=== PATIENT | female | born 1960 | race Caucasian/White ===

== ENCOUNTER 2017-10-18 02:13 | Inpatient (IN) ==
[2017-10-18] MEDS ORDERED: fentaNYL Citrate Inj 100 MCG/2 ML Ampul IV.PUSH PRN (02:36)
[2017-10-18] MEDS ORDERED: Temazepam 15 MG Capsule PO PRN (03:34)
[2017-10-18] MEDS ORDERED: Bisacodyl 10 MG Supp RECTAL PRN (03:34)
[2017-10-18] MEDS ORDERED: Naloxone Inj 0.4 MG/ML Vial IV.PUSH PRN (03:37)
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
[2017-10-18] MEDS: Sod Chloride 0.9% Inj 1,000 ML IV.CONT SCH ×2 (04:13→15:38)
[2017-10-18] MEDS: ceFAZolin Inj 2,000 MG in Sodium Chlor 0.9% Inj 80 ML IV.SIG SCH ×3 (04:13→20:37)
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
[2017-10-18] MEDS: Morphine Inj 4 MG/ML Vial IV.PUSH PRN ×4 (04:29→21:57)
--- NOTE | 2017-10-18 08:33 | ECG ---
Date Performed: 10/18/2017 Time Performed: 06:10:36 PTAGE: 56 years EKG: Sinus rhythm Normal ECG NO PREVIOUS TRACING DOCTOR: Elias Navarro Interpretating Date/Time 10/18/2017 08:31:31
--- NOTE | 2017-10-18 17:29 | XR ---
EXAM DATE: 10/18/2017 5:23 PM EDT AGE/SEX: 56 years / Female INDICATIONS: Fracture to left 4th and 5th mid to distal metatarsals. CLINICAL DATA: This is the patient's initial encounter. Patient reports that signs and symptoms have been present for 1 day and indicates a pain score of 10/10. MEDICAL/SURGICAL HISTORY: None. None. COMPARISON: No prior exams available for comparison. FINDINGS: The examination demonstrates moderately displaced fractures involving the fourth and fifth metacarpal s. The remainder the osseous structures are intact. CONCLUSION: Moderately displaced fractures involving the fourth and fifth metacarpals of the left foot. Electronically signed by: Vaibhav Howard MD 10/18/2017 5:28 PM EDT
[2017-10-18] MEDS: Gabapentin 300 MG Capsule PO SCH (17:41)
--- NOTE | 2017-10-18 20:22 | MR ---
EXAM DATE: 10/18/2017 7:40 PM EDT AGE/SEX: 56 years / Female INDICATIONS: Internal derangement. Trauma with laceration on bottom of foot. CLINICAL DATA: This is the patient's initial encounter. Patient reports that signs and symptoms have been present for 1 day and indicates a pain score of 7/10. MEDICAL/SURGICAL HISTORY: Arthritis. section. Breast augmentation. COMPARISON: No prior exams available for comparison. TECHNIQUE: Multiplanar, multisequence MRI examination was performed without contrast. FINDINGS: There is a loculated fluid collection on the plantar aspect of the foot measuring up to 7 cm in lengt h, 4.7 cm in transverse diameter and 1.6 cm this predominantly overlies the metatarsals. Reportedly t here is a laceration on bottom of foot. This could represent hematoma. Cannot exclude infection. Cont rast not administered. There is also edema in the subcutaneous tissues of the remainder of the foot e specially on the dorsum of the foot and the distal metatarsal and phalangeal region. No significant m arrow edema is seen to suggest fracture. No some scattered reactive type marrow changes noted. Small benign-appearing cystic lesion noted in the calcaneus anteriorly. No dislocation. No tendon ruptures are seen. Plantar fascia appears to be intact. Small ankle joint effusion. CONCLUSION: 1. Loculated fluid on the plantar aspect of the foot as above could represent hematoma associated wi th reported laceration. Cannot exclude infection although inflammatory changes around the fluid colle ction are minimal. No evidence for osteomyelitis. 2. Additional edematous changes are present in the forefoot including the dorsum of the foot with ex tension into the phalanges. 3. Small ankle joint effusion. Mild to moderate degenerative changes in the foot with some reactive marrow changes. Plantar fascial insertion appears intact. Electronically signed by: Geovanni Ashley MD 10/18/2017 8:21 PM EDT
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
[2017-10-18] MEDS ORDERED: Gentamicin/NS 80 mg Premix 100 ML IV.SIG SCH (21:00)
[2017-10-18] MEDS: Gentamicin Inj 80 MG in Sodium Chlor 0.9% Inj 100 ML IV.SIG SCH (22:45)
[2017-10-19] MEDS: Sod Chloride 0.9% Inj 1,000 ML IV.CONT SCH (00:46)
[2017-10-19] MEDS: Morphine Inj 4 MG/ML Vial IV.PUSH PRN ×6 (01:13→23:02)
[2017-10-19] MEDS: ceFAZolin Inj 2,000 MG in Sodium Chlor 0.9% Inj 80 ML IV.SIG SCH ×3 (04:09→19:44)
[2017-10-19 07:15] LABS: Baso # (Auto) 0.1 th/mm3 (0.0-0.2); Baso % (Auto) 0.9 % (0.0-2.0); Eos # (Auto) 0.2 th/mm3 (0.0-0.4); Eos % (Auto) 1.8 % (0.0-4.0); Hemoglobin 13.6 gm/dL (11.6-15.3); Lymph # (Auto) 2.5 th/mm3 (1.0-4.8); Lymph % (Auto) 25.2 % (9.0-44.0); Mean Corpuscular Hemoglobin 28.9 pg (27.0-34.0); Mean Platelet Volume 8.8 fL (7.0-11.0); Mono % (Auto) 10.4 % (0.0-8.0); Neut % (Auto) 61.7 % (16.0-70.0); Platelet Count 214 th/mm3 (150-450); Red Cell Distribution Width 14.9 % (11.6-17.2); White Blood Count 9.8 th/mm3 (4.0-11.0)
[2017-10-19 07:46] LABS: Albumin 3.7 g/dL (3.4-5.0); Anion Gap 10 meq/L (5-15); Aspartate Aminotransferase 24 U/L (15-37); Blood Urea Nitrogen 13 mg/dL (7-18); Calcium 8.8 mg/dL (8.5-10.1); Carbon Dioxide 21.7 meq/L (21.0-32.0); Chloride 107 meq/L (98-107); Glomerular Filtration Rate 68 mL/min (>89); Glucose,Random 76 mg/dL (74-106); Potassium 3.6 meq/L (3.5-5.1); Sodium 139 meq/L (136-145)
[2017-10-19 07:47] LABS: Alanine Aminotransferase 14 U/L (10-53)
[2017-10-19 07:49] LABS: Alkaline Phosphatase 44 U/L (45-117); Total Protein 7.1 g/dL (6.4-8.2)
[2017-10-19] MEDS: Gabapentin 300 MG Capsule PO SCH ×3 (08:47→17:38)
--- NOTE | 2017-10-19 11:53 | P.PNPOD ---
Subjective Interval history: Pt resting comfortably, but states that the posterior splint is uncomfortable. She denies any events over night. Physical Exam Vital signs: Vital Signs 10/18/17 12:00 10/18/17 16:00 10/18/17 20:00 Temperature 97.6 F 97.5 F L 99 F Pulse Rate 78 75 78 Respiratory Rate 16 15 Blood Pressure 138/88 135/87 175/73 H Pulse Oximetry 98 99 97 10/18/17 20:35 10/18/17 21:58 10/19/17 00:00 Temperature 99 F Pulse Rate 84 Respiratory Rate 18 18 17 Blood Pressure 163/79 H Pulse Oximetry 95 10/19/17 04:00 10/19/17 05:31 10/19/17 08:00 Temperature 97.9 F 97.7 F Pulse Rate 79 80 Respiratory Rate 19 18 14 Blood Pressure 131/74 126/88 Pulse Oximetry 97 98 Intake & Output 10/18/17 10/19/17 10/19/17 18:59 06:59 18:59 Intake Total 1900 / 1900 920 / 920 0 / 0 Balance 1900 / 1900 920 / 920 0 / 0 Intake: IV 1100 / 1100 200 / 200 NS Inj 1,000 ML @ 100 mls/hr IV 1000 / 1000 .CONT .Q10H [facility] Rx#:[id number] Gentamicin Inj 80 MG In NS Inj 100 / 100 100 ML @ 204 mls/hr IV.SIG Q24H [facility] Rx#:[id number] Ancef Inj 2,000 MG In NS Inj 80 100 / 100 100 / 100 ML @ 200 mls/hr IV.SIG Q8H [facility] Rx#:[id number] Oral 800 / 800 720 / 720 0 / 0 Other: # Voids 4 Date of Last Bowel Movement 10/17/17 10/17/17 10/17/17 Narrative: Left foot sutures intact, with plantar edema but skin is blanchable and intact. No drainage. No erythema. Sensation is intact. ROM of digits has increased. Calf is supple and non tender to compression. Medications and Allergies Active Medications: Active Medications Hydrocodone Bitart/Acetaminophen ([place] 5/325) 1 tab PO Q4H PRN PRN Reason: PAIN SCALE 3 TO 5 Last Admin: 10/18/17 16:39 Dose: 1 tab Hydrocodone Bitart/Acetaminophen ([place] 7.5/325) 1 tab PO Q4H PRN PRN Reason: PAIN SCALE 6 TO 10 Last Admin: 10/19/17 09:53 Dose: 1 tab Al Hydroxide/Mg Hydroxide (Milk Of Magnesia Liq) 30 ml PO Q12H PRN PRN Reason: Mild Constipation Albuterol (Ventolin Hfa Inh) 2 puff INH Q6H PRN PRN Reason: SHORTNESS OF BREATH Alprazolam (Xanax) 1 mg PO TID PRN PRN Reason: Anxiety Last Admin: 10/19/17 01:13 Dose: 1 mg Bisacodyl (Dulcolax Supp) 10 mg RECTAL DAILY PRN PRN Reason: SEVERE CONSITIPATION Gabapentin (Neurontin) 600 mg PO TID [facility] Last Admin: 10/19/17 08:47 Dose: 600 mg Sodium Chloride (Ns Inj) 1,000 mls @ 100 mls/hr IV.CONT .Q10H [facility] Last Admin: 10/19/17 00:46 Dose: 100 mls/hr Cefazolin Sodium 2,000 mg/ (Sodium Chloride) 100 mls @ 200 mls/hr IV.SIG Q8H [facility] Last Admin: 10/19/17 04:09 Dose: 100 mls/hr Gentamicin Sulfate 80 mg/ (Sodium Chloride) 102 mls @ 204 mls/hr IV.SIG Q24H [facility] Stop: 10/21/17 23:59 Last Infusion: 10/19/17 00:49 Dose: 204 mls/hr Lactulose (Lactulose Liq) 30 ml PO DAILY PRN PRN Reason: SEVERE CONSITIPATION Morphine Sulfate (Morphine Inj) 2 mg IV.PUSH Q3H PRN PRN Reason: Breakthrough and if NPO Last Admin: 10/19/17 08:50 Dose: 2 mg Naloxone HCl (Narcan Inj) 0.4 mg IV.PUSH UNSCH PRN PRN Reason: SEE LABEL COMMENTS Nicotine (Habitrol 14 Mg Patch.24 Hr) 1 patch T-DERMAL DAILY [facility] Last Admin: 10/19/17 08:47 Dose: 1 patch Patch Removal (Remove Old Patch) 0 each T-DERMAL DAILY [facility] Last Admin: 10/19/17 08:49 Dose: Not Given Sennosides (Senokot) 17.2 mg PO Q12H PRN PRN Reason: Moderate Constipation Allergies Allergy/AdvReac Type Severity Reaction Status Date / Time No Known Allergies Allergy Unverified 10/18/17 02:24 Home Medications Medication Instructions Recorded Confirmed Type albuterol sulfate [Ventolin HFA] 2 puff INHALATION Q4-6H PRN 10/18/17 10/18/17 History alprazolam 1 mg PO BID 10/18/17 10/18/17 History alprazolam [Xanax] 1 mg PO TID PRN 10/18/17 10/18/17 History gabapentin 800 mg PO TID 10/18/17 10/18/17 History tizanidine 4 mg PO TID 10/18/17 10/18/17 History Results - Labs CBC & Chem 7: 10/19/17 06:27 10/19/17 06:27 Laboratory Results - last 24 hr 10/19/17 10/19/17 06:27 06:27 WBC 9.8 RBC 4.70 Hgb 13.6 Hct 40.0 MCV 85.0 MCH 28.9 MCHC 34.0 RDW 14.9 Plt Count 214 MPV 8.8 Neut % (Auto) 61.7 Lymph % (Auto) 25.2 Green % (Auto) 10.4 H Eos % (Auto) 1.8 Baso % (Auto) 0.9 Neut # (Auto) 6.0 Lymph # (Auto) 2.5 Green # (Auto) 1.0 H Eos # (Auto) 0.2 Baso # (Auto) 0.1 WBC Differential . Differential Comment Auto diff final Sodium 139 Potassium 3.6 Chloride 107 Carbon Dioxide 21.7 Anion Gap 10 BUN 13 Creatinine 0.87 Estimated GFR 68 L Random Glucose 76 Calcium 8.8 Total Bilirubin 0.7 AST 24 ALT 14 Alkaline Phosphatase 44 L Total Protein 7.1 Albumin 3.7 - Imaging Impressions Foot MRI 10/18/17 00:00 CONCLUSION: 1. Loculated fluid on the plantar aspect of the foot as above could represent hematoma associated with reported laceration. Cannot exclude infection although inflammatory changes around the fluid collection are minimal. No evidence for osteomyelitis. 2. Additional edematous changes are present in the forefoot including the dorsum of the foot with extension into the phalanges. 3. Small ankle joint effusion. Mild to moderate degenerative changes in the foot with some reactive marrow changes. Plantar fascial insertion appears intact. Foot X-Ray 10/18/17 00:00 CONCLUSION: Moderately displaced fractures involving the fourth and fifth metacarpals of the left foot. Assessment and Plan - Assessment (1) Fracture of metatarsal bone of left foot Code(s): S92.302A - Fracture of unspecified metatarsal bone(s), left foot, initial encounter for closed fracture Status: Acute - Plan 1)left 4th and 5th metatarsal fractures 2)left foot degloving injury -NWBing LLE -elevate at all times, no ice -MRI negative for tendon injury, metatarsal fractures are well aligned and non operable -Plan to keep in house for an additional 48-72 hours to monitor the plantar flap , small chance the swelling/hematoma will need to be evacuated -Cont iv abx
--- NOTE | 2017-10-19 12:49 | P.PN ---
Subjective Interval history: Follow-up foot injury. States she is doing okay recommended to stay in-house for 48-72 hours per podiatry to monitor hematoma Physical Exam Vital signs: Vital Signs 10/18/17 16:00 10/18/17 20:00 10/18/17 20:35 Temperature 97.5 F L 99 F Pulse Rate 75 78 Respiratory Rate 15 18 Blood Pressure 135/87 175/73 H Pulse Oximetry 99 97 10/18/17 21:58 10/19/17 00:00 10/19/17 04:00 Temperature 99 F 97.9 F Pulse Rate 84 79 Respiratory Rate 18 17 19 Blood Pressure 163/79 H 131/74 Pulse Oximetry 95 97 10/19/17 05:31 10/19/17 08:00 10/19/17 12:00 Temperature 97.7 F 97.8 F Pulse Rate 80 84 Respiratory Rate 18 14 18 Blood Pressure 126/88 137/81 Pulse Oximetry 98 96 Intake & Output 10/18/17 10/19/17 10/19/17 18:59 06:59 18:59 Intake Total 1900 / 1900 920 / 920 0 / 0 Balance 1900 / 1900 920 / 920 0 / 0 Intake: IV 1100 / 1100 200 / 200 NS Inj 1,000 ML @ 100 mls/hr IV 1000 / 1000 .CONT .Q10H [facility] Rx#:[id number] Gentamicin Inj 80 MG In NS Inj 100 / 100 100 ML @ 204 mls/hr IV.SIG Q24H [facility] Rx#:[id number] Ancef Inj 2,000 MG In NS Inj 80 100 / 100 100 / 100 ML @ 200 mls/hr IV.SIG Q8H [facility] Rx#:[id number] Oral 800 / 800 720 / 720 0 / 0 Other: # Voids 4 Date of Last Bowel Movement 10/17/17 10/17/17 10/17/17 Narrative: GENERAL: This is a well-nourished, well-developed patient, in no apparent distress. SKIN: Left foot laceration, sanguinous drainage CARDIOVASCULAR: Regular rate and rhythm without murmurs, gallops, or rubs. RESPIRATORY: Clear to auscultation. Breath sounds equal bilaterally. No wheezes , rales, or rhonchi. GASTROINTESTINAL: Abdomen soft, non-tender, nondistended. Normal active bowel sounds MUSCULOSKELETAL: Extremities without clubbing, cyanosis, or edema. Right lower extremity in a splint NEURO: Alert & Oriented x4 to person, place, time, situation. Results - Labs CBC & Chem 7: 10/19/17 06:27 10/19/17 06:27 Laboratory Results - last 24 hr 10/19/17 10/19/17 06:27 06:27 WBC 9.8 RBC 4.70 Hgb 13.6 Hct 40.0 MCV 85.0 MCH 28.9 MCHC 34.0 RDW 14.9 Plt Count 214 MPV 8.8 Neut % (Auto) 61.7 Lymph % (Auto) 25.2 [place] % (Auto) 10.4 H Eos % (Auto) 1.8 Baso % (Auto) 0.9 Neut # (Auto) 6.0 Lymph # (Auto) 2.5 [place] # (Auto) 1.0 H Eos # (Auto) 0.2 Baso # (Auto) 0.1 WBC Differential . Differential Comment Auto diff final Sodium 139 Potassium 3.6 Chloride 107 Carbon Dioxide 21.7 Anion Gap 10 BUN 13 Creatinine 0.87 Estimated GFR 68 L Random Glucose 76 Calcium 8.8 Total Bilirubin 0.7 AST 24 ALT 14 Alkaline Phosphatase 44 L Total Protein 7.1 Albumin 3.7 - Imaging Impressions Foot MRI 10/18/17 00:00 CONCLUSION: 1. Loculated fluid on the plantar aspect of the foot as above could represent hematoma associated with reported laceration. Cannot exclude infection although inflammatory changes around the fluid collection are minimal. No evidence for osteomyelitis. 2. Additional edematous changes are present in the forefoot including the dorsum of the foot with extension into the phalanges. 3. Small ankle joint effusion. Mild to moderate degenerative changes in the foot with some reactive marrow changes. Plantar fascial insertion appears intact. Foot X-Ray 10/18/17 00:00 CONCLUSION: Moderately displaced fractures involving the fourth and fifth metacarpals of the left foot. Assessment and Plan - Plan Multiple metatarsal fractures Degloving injury X-ray of the left foot reviewed and shows fractures of the distal second and third metatarsals with adjacent lacerations. Small 2 mm fracture fragment arising from the lateral distal third metatarsal. Small avulsion fraction of the dorsal distal margin of the distal tarsal row. Possible ligament injury. -Consulted podiatry who recommended continued hospitalization for 48-74 hours to monitor hematoma(suggested in MRI0 might need to be evacuated -Pain management with IV morphine and p.o. [place] -Continue IV antibiotic. Multiple medical conditions of chronic pain and anxiety DVT prophylaxis: SCDs. Pharmacological prophylaxis contraindicated at this time secondary to hematoma Discharge Planning: per podiatry
[2017-10-19] MEDS: Gentamicin Inj 80 MG in Sodium Chlor 0.9% Inj 100 ML IV.SIG SCH (21:59)
[2017-10-20] MEDS: ceFAZolin Inj 2,000 MG in Sodium Chlor 0.9% Inj 80 ML IV.SIG SCH ×3 (04:50→19:32)
[2017-10-20] MEDS: Morphine Inj 4 MG/ML Vial IV.PUSH PRN ×4 (07:25→20:46)
[2017-10-20] MEDS: Gabapentin 300 MG Capsule PO SCH ×3 (08:28→17:02)
--- NOTE | 2017-10-20 15:08 | P.PN ---
Subjective Interval history: Follow-up foot injury. Complaining of increased pain when she was out of bed Physical Exam Vital signs: Vital Signs 10/19/17 16:00 10/19/17 20:00 10/20/17 00:00 Temperature 98.1 F 97.9 F 99.1 F Pulse Rate 80 87 89 Respiratory Rate 16 18 18 Blood Pressure 117/73 162/77 H 116/71 Pulse Oximetry 97 98 97 10/20/17 08:00 10/20/17 12:00 Temperature 98.0 F 97.8 F Pulse Rate 80 77 Respiratory Rate 20 16 Blood Pressure 117/78 106/84 Pulse Oximetry 99 94 L Intake & Output 10/19/17 10/20/17 10/20/17 18:59 06:59 18:59 Intake Total 900 / 900 200 / 200 Balance 900 / 900 200 / 200 Weight 60.6 kg Intake: IV 100 / 100 200 / 200 Ancef Inj 2,000 MG In NS Inj 80 100 / 100 200 / 200 ML @ 200 mls/hr IV.SIG Q8H [facility] Rx#:[id number] Oral 800 / 800 Other: # Voids 1 2 Date of Last Bowel Movement 10/17/17 10/17/17 10/17/17 Narrative: GENERAL: This is a well-nourished, well-developed patient, in no apparent distress. SKIN: No lesions warm and dry CARDIOVASCULAR: Regular rate and rhythm without murmurs, gallops, or rubs. RESPIRATORY: Clear to auscultation. Breath sounds equal bilaterally. No wheezes , rales, or rhonchi. GASTROINTESTINAL: Abdomen soft, non-tender, nondistended. Normal active bowel sounds MUSCULOSKELETAL: Extremities without clubbing, cyanosis, or edema. Right lower extremity in a splint NEURO: Alert & Oriented x4 to person, place, time, situation. Results - Labs CBC & Chem 7: 10/19/17 06:27 10/19/17 06:27 Assessment and Plan - Plan Multiple metatarsal fractures Degloving injury X-ray of the left foot reviewed and shows fractures of the distal second and third metatarsals with adjacent lacerations. Small 2 mm fracture fragment arising from the lateral distal third metatarsal. Small avulsion fraction of the dorsal distal margin of the distal tarsal row. Possible ligament injury. -Consulted podiatry who recommended continued hospitalization for 48-74 hours from 10/19 to monitor hematoma(suggested in MRI) might need to be evacuated -Pain management with IV morphine and p.o. [place] -Continue IV antibiotic. Multiple medical conditions of chronic pain and anxiety DVT prophylaxis: SCDs. Pharmacological prophylaxis contraindicated at this time secondary to hematoma Discharge Planning: per podiatry
[2017-10-20] MEDS: Gentamicin Inj 80 MG in Sodium Chlor 0.9% Inj 100 ML IV.SIG SCH (21:54)
[2017-10-21] MEDS: Morphine Inj 4 MG/ML Vial IV.PUSH PRN ×3 (00:44→08:55)
[2017-10-21] MEDS: ceFAZolin Inj 2,000 MG in Sodium Chlor 0.9% Inj 80 ML IV.SIG SCH ×2 (04:15→12:10)
[2017-10-21] MEDS: Gabapentin 300 MG Capsule PO SCH ×2 (08:48→13:05)
--- NOTE | 2017-10-21 11:14 | P.PN ---
Subjective Interval history: Follow-up foot injury. She is doing okay and wants to go home. Discussed with nursing contact podiatry Physical Exam Vital signs: Vital Signs 10/20/17 12:00 10/20/17 16:00 10/20/17 20:00 Temperature 97.8 F 98.6 F 98.1 F Pulse Rate 77 79 84 Respiratory Rate 16 18 18 Blood Pressure 106/84 111/67 159/80 H Pulse Oximetry 94 L 95 97 10/21/17 00:00 10/21/17 04:00 10/21/17 08:00 Temperature 99.0 F 97.6 F 98.4 F Pulse Rate 78 74 69 Respiratory Rate 18 17 18 Blood Pressure 147/56 H 120/72 109/68 Pulse Oximetry 95 97 94 L Intake & Output 10/20/17 10/21/17 10/21/17 18:59 06:59 18:59 Intake Total 580 / 580 200 / 200 Balance 580 / 580 200 / 200 Weight 60.6 kg Intake: IV 100 / 100 200 / 200 Ancef Inj 2,000 MG In NS Inj 80 100 / 100 200 / 200 ML @ 200 mls/hr IV.SIG Q8H [facility] Rx#:[id number] Oral 480 / 480 Other: # Voids 1 4 Date of Last Bowel Movement 10/17/17 10/18/17 Narrative: GENERAL: This is a well-nourished, well-developed patient, in no apparent distress. SKIN: No lesions warm and dry CARDIOVASCULAR: Regular rate and rhythm without murmurs, gallops, or rubs. RESPIRATORY: Clear to auscultation. Breath sounds equal bilaterally. No wheezes , rales, or rhonchi. GASTROINTESTINAL: Abdomen soft, non-tender, nondistended. Normal active bowel sounds MUSCULOSKELETAL: Extremities without clubbing, cyanosis, or edema. Right lower extremity in a splint Results - Labs CBC & Chem 7: 10/19/17 06:27 10/19/17 06:27 - Imaging Impressions Foot MRI 10/18/17 00:00 CONCLUSION: 1. Loculated fluid on the plantar aspect of the foot as above could represent hematoma associated with reported laceration. Cannot exclude infection although inflammatory changes around the fluid collection are minimal. No evidence for osteomyelitis. 2. Additional edematous changes are present in the forefoot including the dorsum of the foot with extension into the phalanges. 3. Small ankle joint effusion. Mild to moderate degenerative changes in the foot with some reactive marrow changes. Plantar fascial insertion appears intact. Assessment and Plan - Plan Multiple metatarsal fractures Degloving injury X-ray of the left foot reviewed and shows fractures of the distal second and third metatarsals with adjacent lacerations. Small 2 mm fracture fragment arising from the lateral distal third metatarsal. Small avulsion fraction of the dorsal distal margin of the distal tarsal row. Possible ligament injury. -Consulted podiatry who recommended continued hospitalization for 48-74 hours from 10/19 to monitor hematoma(suggested in MRI) might need to be evacuated -Pain management with IV morphine and p.o. [place]. Eforcse checked -Continue IV Ancef and gentamicin Multiple medical conditions of chronic pain and anxiety DVT prophylaxis: SCDs. Pharmacological prophylaxis contraindicated at this time secondary to hematoma Discharge Planning: Possible discharge today pending podiatry evaluation
--- NOTE | 2017-10-21 21:37 | P.AMA ---
AMA Note - AMA Note AMA Statement: Patient Gladys Clayton has decided to leave the hospital against medical advice. This patient has the capacity to refuse care and understands the risks of leaving, including permanent disability and/or , and has had an opportunity to ask questions about his/her condition. The patient has been informed that he/she may return for care at any time, and follow up has been arranged/advised. - AMA Note Discharge Disposition: Left Against Medical Advice Patient Condition on Discharge: Stable
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
== END 2017-10-21 13:35 | disposition left against medical advice (07) ==
LOC: NEPE 02:13 → NEDA 03:34 → N06 04:49
PROVIDERS: ADMIT Internal Medicine; ATTEND Internal Medicine